=== PATIENT | female | born 1945 | race Two or more races ===

== ENCOUNTER 2017-10-20 17:59 | Emergency (ER) | payer OTHER ==
[~2017-10-20] VITALS: Ht 152.4 cm; Wt 48.1 kg
[~2017-10-20 17:59] MED LIST: CIPRO500 MG; CIPRO500 MG PO; DOLOGESIC 500-1 EACH PO; EVISTA60 MG; FLAGYL500MG PO; FLUOCINONIDE1 GM; INTESTINEX680 MG PO; LEVAQUIN750 MG PO; MEDROLPACK PO; METRONIDAZOLE500 MG; SIMVASTATIN5 MG; SYNTHROID125 MCG; SYNTHROID75 MCG; TUSSI PRES-B L120 M1 PO
[2017-10-20] MEDS ORDERED: ALLEGRA ALLERG180 MG (18:30)
== END 2017-10-20 20:42 ==
LOC: ER 17:59
DX: R09.81 Nasal congestion (principal); B34.9 Viral infection, unspecified

== ENCOUNTER 2018-01-01 18:10 | Emergency (ER) | payer OTHER ==
[~2018-01-01] VITALS: Ht 152.4 cm; Wt 47.6 kg
[~2018-01-01 18:10] MED LIST changes: +ALLEGRA ALLERG180 MG
== END 2018-01-01 21:28 | disposition home or self-care (01) ==
LOC: ER 18:10
DX: J45.998 Other asthma (principal); J11.1 Influenza due to unidentified influenza virus with other respiratory manifestations

== ENCOUNTER 2018-01-30 15:27 | Emergency (ER) | payer OTHER ==
[~2018-01-30] VITALS: Ht 152.4 cm; Wt 48.1 kg
== END 2018-01-30 20:05 | disposition home or self-care (01) ==
LOC: ER 15:27
DX: R19.7 Diarrhea, unspecified (principal)

== ENCOUNTER 2018-06-12 17:45 | Emergency (ER) | payer OTHER ==
[~2018-06-12] VITALS: Ht 149.9 cm; Wt 47.6 kg
== END 2018-06-12 20:00 | disposition home or self-care (01) ==
LOC: ER 17:45
DX: M25.571 Pain in right ankle and joints of right foot (principal); M25.561 Pain in right knee; S93.491S Sprain of other ligament of right ankle, sequela; X50.0XXS Overexertion from strenuous movement or load, sequela

== ENCOUNTER 2018-06-21 14:42 | Outpatient (CLI) | payer OTHER | END 2018-06-21 15:43 | disposition home or self-care (01) | LOC: RAD 501 14:42 | DX: M25.571 Pain in right ankle and joints of right foot (principal); M25.561 Pain in right knee ==

== ENCOUNTER 2018-06-25 15:03 | Outpatient (CLI) | payer OTHER | END 2018-06-25 15:07 | disposition home or self-care (01) | LOC: RAD 15:03 | DX: M25.561 Pain in right knee (principal); M25.571 Pain in right ankle and joints of right foot ==

== ENCOUNTER → 2018-11-02 | Outpatient (CLI) | payer OTHER | END | disposition home or self-care (01) | LOC: RAD 08:34 | DX: M54.5 Low back pain (principal); E03.8 Other specified hypothyroidism; E11.51 Type 2 diabetes mellitus with diabetic peripheral angiopathy without gangrene; E55.9 Vitamin D deficiency, unspecified ==

== ENCOUNTER → 2019-02-20 | Outpatient (CLI) | payer OTHER | END | disposition home or self-care (01) | LOC: MRI 12:36 → RAD 12:36 | DX: M54.5 Low back pain (principal); M54.16 Radiculopathy, lumbar region | CPT/HCPCS: 72148 ==

== ENCOUNTER 2019-04-14 22:40 | Emergency (ER) | payer OTHER ==
[~2019-04-14] VITALS: Ht 152.4 cm; Wt 47.6 kg
[2019-04-15] MEDS ORDERED: DOLOGESIC 500-1 EACH PO (06:27)
== END 2019-04-15 06:27 ==
LOC: ER 22:40
DX: R10.32 Left lower quadrant pain (principal)

== ENCOUNTER 2019-06-04 11:14 | Outpatient (CLI) | payer OTHER | END 2019-06-04 11:32 | disposition home or self-care (01) | LOC: NUCLEAR 11:14 | DX: M81.0 Age-related osteoporosis without current pathological fracture (principal); M54.5 Low back pain; E03.8 Other specified hypothyroidism; E11.51 Type 2 diabetes mellitus with diabetic peripheral angiopathy without gangrene; E55.9 Vitamin D deficiency, unspecified; I11.9 Hypertensive heart disease without heart failure; M06.4 Inflammatory polyarthropathy; E46 Unspecified protein-calorie malnutrition; N31.8 Other neuromuscular dysfunction of bladder; M54.16 Radiculopathy, lumbar region; Z12.31 Encounter for screening mammogram for malignant neoplasm of breast; Z13.820 Encounter for screening for osteoporosis; Z65.8 Other specified problems related to psychosocial circumstances ==

== ENCOUNTER 2020-09-30 09:16 | Outpatient (CLI) | payer OTHER | END 2020-09-30 09:27 | disposition home or self-care (01) | LOC: RAD 09:16 | PROVIDERS: ATTEND Internal Medicine Cardiovascular Disease | DX: Z12.31 Encounter for screening mammogram for malignant neoplasm of breast (principal); Z87.898 Personal history of other specified conditions; N64.59 Other signs and symptoms in breast; G93.89 Other specified disorders of brain; R41.2 Retrograde amnesia ==

== ENCOUNTER 2020-09-30 12:31 | Outpatient (CLI) | payer OTHER | END 2020-09-30 12:33 | disposition home or self-care (01) | LOC: NUCLEAR 12:31 | PROVIDERS: ATTEND Internal Medicine Cardiovascular Disease | DX: I10 Essential (primary) hypertension (principal); J44.9 Chronic obstructive pulmonary disease, unspecified; M81.0 Age-related osteoporosis without current pathological fracture; E55.9 Vitamin D deficiency, unspecified ==

== ENCOUNTER 2020-11-03 08:56 | Emergency (ER) | payer OTHER ==
[~2020-11-03] VITALS: Ht 149.9 cm; Wt 48.1 kg
== END 2020-11-03 18:50 | disposition home or self-care (01) ==
LOC: ER 08:56
DX: K57.92 Diverticulitis of intestine, part unspecified, without perforation or abscess without bleeding (principal); R10.32 Left lower quadrant pain; B34.9 Viral infection, unspecified

== ENCOUNTER 2021-04-27 12:58 | Outpatient (CLI) | payer OTHER | END 2021-04-27 13:04 | disposition home or self-care (01) | LOC: RAD 12:58 | PROVIDERS: ATTEND Physical Medicine & Rehabilitation | DX: M17.11 Unilateral primary osteoarthritis, right knee (principal); M25.561 Pain in right knee ==

== ENCOUNTER 2021-05-03 10:00 | Outpatient (CLI) | payer OTHER | END 2021-05-03 10:20 | disposition home or self-care (01) | LOC: MRI 10:00 | PROVIDERS: ATTEND Physical Medicine & Rehabilitation | DX: M54.50 Low back pain, unspecified (principal); M54.16 Radiculopathy, lumbar region | CPT/HCPCS: 72148 ==

== ENCOUNTER 2021-07-01 10:34 | Outpatient (CLI) | payer OTHER | END 2021-07-01 10:39 | disposition home or self-care (01) | LOC: RAD 10:34 | PROVIDERS: ATTEND Ophthalmology | DX: Z01.818 Encounter for other preprocedural examination (principal) ==

== ENCOUNTER 2022-04-14 14:42 | Outpatient (CLI) | payer OTHER | END 2022-04-14 14:51 | disposition home or self-care (01) | LOC: RAD 14:42 | PROVIDERS: ATTEND Internal Medicine Cardiovascular Disease | DX: R41.2 Retrograde amnesia (principal); R51.9 Headache, unspecified; M12.9 Arthropathy, unspecified; M46.48 Discitis, unspecified, sacral and sacrococcygeal region ==

== ENCOUNTER 2022-12-06 10:53 | Emergency (ER) | payer OTHER ==
[~2022-12-06] VITALS: Ht 157.5 cm; Wt 59.0 kg
== END 2022-12-06 14:10 | disposition home or self-care (01) ==
LOC: ER 10:53
DX: M25.552 Pain in left hip (principal); E03.9 Hypothyroidism, unspecified; Z88.6 Allergy status to analgesic agent
CPT/HCPCS: 96372; 99282; J1100; J1885; J2360

== ENCOUNTER 2022-12-09 13:59 | Emergency (ER) | payer OTHER ==
[~2022-12-09] VITALS: Ht 149.9 cm; Wt 47.6 kg
== END 2022-12-09 18:06 | disposition home or self-care (01) ==
LOC: ER 14:00
DX: M54.9 Dorsalgia, unspecified (principal); M25.552 Pain in left hip; M25.521 Pain in right elbow
CPT/HCPCS: 72100; 73070; 73503; 73551; 96372; 99284; J1100

== ENCOUNTER 2023-05-20 12:17 | Emergency (ER) | payer OTHER ==
[~2023-05-20] VITALS: Ht 152.4 cm; Wt 48.1 kg
[2023-05-20] MEDS ORDERED: BUDESONIDE 0.5 MG/2 ML AMPUL.NEB IH STA (14:04)
[2023-05-20] MEDS ORDERED: CEFTRIAXONE SODIUM 1,000 MG VIAL IM STA (14:04)
[2023-05-20] MEDS ORDERED: GUAIFENESIN 200 MG/10 ML BLIST.PACK PO STA (14:05)
[2023-05-20] MEDS ORDERED: LEVALBUTEROL HCL 1.25 MG/3 ML SOLUTION IH SCH (14:15)
[2023-05-20 15:43] LABS: HEMATOCRIT 37.8 % (36.0-45.00); HEMOGLOBIN 12.6 g/dL (12.0-15.00); MEAN CORPUSCULAR HEMOGLOBIN 28.6 pg (27.00-32.0); MEAN CORPUSCULAR HGB CONC 33.2 g/dl (32.0-36.0); PLATELET COUNT 332 K/uL (150-450); RED CELL DISTRIBUTION WIDTH 13.1 % (11.5-14.5)
[2023-05-20 16:05] LABS: CALCIUM 9.3 mg/dL (8.5-10.1); CREATININE SERUM 0.52 mg/dL (0.55-1.02); GFR 113.75; POTASSIUM 3.68 mEq/L (3.5-5.1)
== END 2023-05-20 17:21 | disposition home or self-care (01) ==
LOC: ER 12:17
PROVIDERS: General Practice
DX: R05.8 Other specified cough (principal); Z88.6 Allergy status to analgesic agent; Z20.822 Contact with and (suspected) exposure to COVID-19
CPT/HCPCS: 36415; 71046; 94640; 96372; 99285; J0696

== ENCOUNTER 2023-09-27 07:18 | Outpatient (CLI) | payer OTHER | END 2023-09-27 07:19 | disposition home or self-care (01) | LOC: NUCLEAR 07:18 | PROVIDERS: ATTEND Internal Medicine Cardiovascular Disease | DX: M12.9 Arthropathy, unspecified (principal); M10.9 Gout, unspecified | CPT/HCPCS: 78315; A9503 ==

== ENCOUNTER 2024-01-12 12:19 | Emergency (ER) | payer OTHER ==
[~2024-01-12] VITALS: Ht 152.4 cm; Wt 47.2 kg
[2024-01-12 14:24] LABS: PH,URINE 5.5 (5.0-8.0); URINE APPEARANCE Clear; URINE BILIRRUBIN Negative (NEGATIVE); URINE BLOOD Negative; URINE COLOR Yellow; URINE GLUCOSE Negative (NEGATIVE); URINE KETONE Negative (NEGATIVE); URINE LEUKOCYTE Trace; URINE NITRATE Negative; URINE PROTEIN Negative (NEGATIVE); URINE UROBILINOGEN 0.2 E.U./dl
[2024-01-12 14:25] LABS: URINE BACTERIA 35.2 uL (0.0-1933); URINE EPITHELIAL CELLS 8.9 uL (0.0-38.8); URINE RBC 6.7 uL (0.0-20.8); URINE WBC 7.5 uL (0.0-23.2)
[2024-01-12 14:35] LABS: HEMATOCRIT 36.3 % (36.0-45.00); MEAN CELL VOLUME 83.4 fL (80.00-100.00); MEAN CORPUSCULAR HEMOGLOBIN 27.6 pg (27.00-32.0); MEAN CORPUSCULAR HGB CONC 33.1 g/dl (32.0-36.0); PLATELET COUNT 308 K/uL (150-450); RED BLOOD COUNT 4.35 M/uL (4.00-6.00); RED CELL DISTRIBUTION WIDTH 14.5 % (11.5-14.5)
[2024-01-12 14:41] LABS: CALCIUM 9.3 mg/dL (8.5-10.1); CREATININE SERUM 0.59 mg/dL (0.55-1.02); GFR 98.32; POTASSIUM 4.19 mEq/L (3.5-5.1)
== END 2024-01-12 15:45 | disposition home or self-care (01) ==
LOC: ER 12:21
PROVIDERS: General Practice
DX: J32.9 Chronic sinusitis, unspecified (principal); E03.8 Other specified hypothyroidism; Z88.6 Allergy status to analgesic agent

== ENCOUNTER 2024-03-08 07:14 | Emergency (ER) | payer OTHER ==
[~2024-03-08] VITALS: Ht 152.4 cm; Wt 55.8 kg
[2024-03-08] MEDS ORDERED: DEXAMETHASONE SODIUM PHOSPHATE 4 MG/ML VIAL IV STA (08:33)
[2024-03-08 09:58] LABS: HEMATOCRIT 35.8 % (36.0-45.00); HEMOGLOBIN 12.1 g/dL (12.0-15.00); MEAN CELL VOLUME 84.3 fL (80.00-100.00); MEAN CORPUSCULAR HEMOGLOBIN 28.4 pg (27.00-32.0); MEAN CORPUSCULAR HGB CONC 33.7 g/dl (32.0-36.0); PLATELET COUNT 238 K/uL (150-450); RED BLOOD COUNT 4.25 M/uL (4.00-6.00)
[2024-03-08 10:31] LABS: CALCIUM 8.6 mg/dL (8.5-10.1); CREATININE SERUM 0.48 mg/dL (0.55-1.02); GFR 124.76; POTASSIUM 3.9 mEq/L (3.5-5.1)
[2024-03-08 11:27] LABS: URINE APPEARANCE Clear; URINE BILIRRUBIN Negative (NEGATIVE); URINE BLOOD Negative; URINE COLOR Yellow; URINE GLUCOSE Negative (NEGATIVE); URINE KETONE Negative (NEGATIVE); URINE LEUKOCYTE Negative; URINE NITRATE Negative; URINE PROTEIN Negative (NEGATIVE); URINE UROBILINOGEN 0.2 E.U./dl
[2024-03-08 11:31] LABS: URINE BACTERIA 4.8 uL (0.0-1933); URINE RBC 11.9 uL (0.0-20.8); URINE WBC 2.2 uL (0.0-23.2)
[2024-03-08 11:53] LABS: URINE EPITHELIAL CELLS 1.2 uL (0.0-38.8)
== END 2024-03-08 12:04 | disposition home or self-care (01) ==
LOC: ER 07:14
PROVIDERS: General Practice
DX: M94.0 Chondrocostal junction syndrome [Tietze] (principal); E03.8 Other specified hypothyroidism; Z88.6 Allergy status to analgesic agent
CPT/HCPCS: 36415; 71045; 93005; 96365; 99283; J1100

== ENCOUNTER 2024-04-11 13:36 | Emergency (ER) | payer OTHER ==
[~2024-04-11] VITALS: Ht 152.4 cm; Wt 47.2 kg
[2024-04-11] MEDS ORDERED: AZITHROMYCIN 500 MG TABLET PO ONE ×2 (16:15→16:20)
[2024-04-11] MEDS ORDERED: GUAIFENESIN/DEXTROMETHORPHAN 10ML BLIST.PACK PO ONE ×2 (16:15→16:21)
[2024-04-11] MEDS ORDERED: METHYLPREDNISOLONE SOD SUCC 125 MG VIAL IV ONE (16:15)
[2024-04-11] MEDS ORDERED: METHYLPREDNISOLONE SOD SUCC 125 MG VIAL ONE (16:21)
[2024-04-11 16:57] LABS: HEMOGLOBIN 12.9 g/dL (12.0-15.00); MEAN CELL VOLUME 84.6 fL (80.00-100.00); MEAN CORPUSCULAR HGB CONC 33.1 g/dl (32.0-36.0); PLATELET COUNT 321 K/uL (150-450); RED BLOOD COUNT 4.61 M/uL (4.00-6.00); RED CELL DISTRIBUTION WIDTH 14.3 % (11.5-14.5)
[2024-04-11] MEDS ORDERED: TUSNEL LIQUID178 ML PO (18:43)
[2024-04-11] MEDS ORDERED: ZITHROMAX500 MG PO (18:43)
[2024-04-11] MEDS ORDERED: XOPENEX CO1.25 MG/0. IH (18:43)
== END 2024-04-11 19:35 | disposition home or self-care (01) ==
LOC: ER 13:39
PROVIDERS: General Practice
DX: J06.9 Acute upper respiratory infection, unspecified (principal); J00 Acute nasopharyngitis [common cold]; Z20.822 Contact with and (suspected) exposure to COVID-19; E03.8 Other specified hypothyroidism; Z88.6 Allergy status to analgesic agent
CPT/HCPCS: 36415; 71046; 96365; 99283; J3490